=== PATIENT | female | born 1990 | race African-American/Black ===

== ENCOUNTER 2022-11-10 21:48 | Emergency (ER) | payer MEDICAID, SELFPAY ==
[2022-11-10 21:51] VITALS: BP 122/82; PULSE 79; RESP 16; TEMP 35.8; BMI 29.7
[2022-11-10 21:53] VITALS: BP 122/82; PULSE 79; RESP 16; TEMP 35.8
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
[2022-11-10] MEDS: Orphenadrine 100 MG Tablet PO (23:33)
== END 2022-11-11 00:01 | disposition home or self-care (01) ==
PROVIDERS: Emergency Provider Emergency Medicine; Visit Provider Emergency Medicine
DX: S29.019A Strain of muscle and tendon of unspecified wall of thorax, initial encounter (principal); E03.9 Hypothyroidism, unspecified; Z79.899 Other long term (current) drug therapy; V89.2XXA Person injured in unspecified motor-vehicle accident, traffic, initial encounter
CPT/HCPCS: 99283